=== PATIENT | female | born 1945 | race Caucasian/White ===

== ENCOUNTER → 2017-09-11 18:53 | Outpatient (CLI) | payer MEDICARE ==
[2017-09-11 19:42] LABS: BASOPHILS 0.1 % (0-2); EOSINOPHILS 0.3 % (0-7); HEMATOCRIT 38.1 % (36.0-48.0); HEMOGLOBIN 12.2 g/dL (12-16); IMMATURE GRANULOCYTES 0.1 % (0-5); LYMPHOCYTES 21.7 % (15-50); MCH 29.8 pg (26.0-34.0); MCV 93.2 fL (80.0-100.0); MEAN PLATELET VOLUME 9.5 fL (7.4-10.4); NEUTROPHILS 73.8 % (40-80); PLATELET COUNT 225 10x3/uL (130-400); RBC 4.09 10x6/uL (4.00-5.40); RDW 14.5 % (11.5-14.5)
[2017-09-11 20:03] LABS: CREATININE - SERUM 0.9 mg/dL (0.6-1.3); T4 THYROXIN - FREE 1.06 ng/dL (0.76-1.46); THYROID STIMULATING HORMONE 0.77 uIU/mL (0.36-3.74)
== END | disposition home or self-care (01) ==
LOC: D.LABREF 18:53
PROVIDERS: Student in an Organized Health Care Education/Training Program
DX: J32.9 Chronic sinusitis, unspecified (principal); E04.1 Nontoxic single thyroid nodule